=== PATIENT | female | born 1960 | race Caucasian/White ===

== ENCOUNTER 2016-06-26 16:40 | Outpatient (CLI) | payer OTHER | END 2016-06-26 16:41 | disposition home or self-care (01) | DX: J44.1 Chronic obstructive pulmonary disease with (acute) exacerbation (principal) ==

== ENCOUNTER 2016-07-06 06:14 | Day surgery (SDC) | payer OTHER ==
[2016-07-06] MEDS ORDERED: LACTATED RINGERS 1,000 ML IV ONE ×2 (07:25→08:34)
[2016-07-06] MEDS ORDERED: PROPOFOL 200 MG/20 ML VIAL IVP ONE (07:30)
[2016-07-06] MEDS ORDERED: ONDANSETRON 4 MG/2 ML VIAL IVP ONE (07:30)
[2016-07-06] MEDS ORDERED: MIDAZOLAM 2 MG/2 ML VIAL IVP ONE (07:30)
[2016-07-06] MEDS ORDERED: LIDOCAINE-MPF 2% 5 ML VIAL IM ONE (07:30)
[2016-07-06] MEDS ORDERED: KETOROLAC 30 MG/ML VIAL IVP ONE (07:30)
[2016-07-06] MEDS ORDERED: BUPIVACAINE 0.5%-EPI 1:200000 PF 30 ML VIAL SUBQ ONE ×2 (08:06)
[2016-07-06] MEDS ORDERED: LIDOCAINE 1% 50 ML MDV SUBQ ONE ×2 (08:06)
[2016-07-06] MEDS ORDERED: BACITRACIN ZINC OINT 15 GM TOP ONE (08:33)
== END 2016-07-06 06:15 | disposition home or self-care (01) ==
PROC: 0DBQ0ZZ Excision of Anus, Open Approach (ICD-10-PCS; 2016-07-06)
PROC: 06BY0ZC Excision of Hemorrhoidal Plexus, Open Approach (ICD-10-PCS; principal; 2016-07-06 07:30)
DX: K62.9 Disease of anus and rectum, unspecified (principal); K64.8 Other hemorrhoids; J43.9 Emphysema, unspecified; F17.210 Nicotine dependence, cigarettes, uncomplicated; E66.9 Obesity, unspecified; Z68.41 Body mass index [BMI] 40.0-44.9, adult
CPT/HCPCS: 46255; 46922; A9270; J7120

== ENCOUNTER 2016-07-13 13:46 | Outpatient (CLI) | payer OTHER | END 2016-07-13 13:47 | disposition home or self-care (01) | DX: E03.9 Hypothyroidism, unspecified (principal) ==

== ENCOUNTER 2016-08-19 13:43 | Outpatient (CLI) | payer OTHER | END 2016-08-19 13:44 | disposition home or self-care (01) | DX: E03.9 Hypothyroidism, unspecified (principal) ==

== ENCOUNTER 2018-06-21 11:19 | Outpatient (CLI) | payer OTHER ==
--- NOTE | 2018-06-22 10:13 | XRAY Report ---
Reason: UNSPECIFIED INJURY OF RIGHT SHOULDER UPPER ARM Procedure Date: 06/21/2018 Accession Number: [id number] / [id number] Procedure: XR - Shoulder 3 View RT CPT Code: FULL RESULT: EXAM: RIGHT SHOULDER RADIOGRAPHY EXAM DATE: 06/21/2018 12:07 PM. CLINICAL HISTORY: UNSPECIFIED INJURY OF RIGHT SHOULDER UPPER ARM. Fall, hitting right shoulder on the edge of countertop with hyperextension of arm. COMPARISON: None. TECHNIQUE: 3 views. FINDINGS: Bones: There is an old midshaft right clavicle fracture with hypertrophic nonunion. No acute fracture is identified. Joints: The glenohumeral and acromioclavicular joints are normal. Soft tissues: The visualized hemithorax is unremarkable. No soft tissue swelling. IMPRESSION: 1. No acute fracture or malalignment of the right shoulder. 2. 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 RADIA
== END 2018-06-21 11:20 | disposition home or self-care (01) ==
LOC: DI 11:19
PROVIDERS: ATTEND Registered Nurse
DX: S49.91XA Unspecified injury of right shoulder and upper arm, initial encounter (principal); S42.021K Displaced fracture of shaft of right clavicle, subsequent encounter for fracture with nonunion

== ENCOUNTER 2019-06-09 14:07 | Outpatient (CLI) | payer OTHER ==
--- NOTE | 2019-06-14 11:32 | Mammography Report ---
Reason: ROUTINE MAMMO Procedure Date: 06/09/2019 Accession Number: [id number] / [id number] Procedure: MGS - Screening Mammo Dig Bilat CPT Code: Final Report FULL RESULT: EXAM: Screening Mammo Dig Bilat DATE: 06/09/2019 2:35 PM CLINICAL HISTORY: The patient is an asymptomatic 58-year-old female. No reported personal nor family history of breast cancer. Prior benign left excisional biopsy. TECHNIQUE: (B) - Bilateral CC and MLO views were obtained. COMPARISON: 11/23/2013 and 01/12/2011 PARENCHYMAL PATTERN: (A) - The breasts demonstrate scattered fibroglandular densities bilaterally. FINDINGS: RIGHT BREAST: There are no suspicious masses, calcifications, or areas of distortion. LEFT BREAST: There may be developing asymmetry in the lateral middle position; reference CC view only. Recommend targeted diagnostic evaluation. The remainder the parenchymal pattern is stable. IMPRESSION: RIGHT BREAST: Negative examination. BI-RADS category 1. LEFT BREAST: Incomplete Examination -BI-RADS category 0. RECOMMENDATION RIGHT BREAST: (ANNUAL) - Recommend routine annual screening mammography. LEFT BREAST: Recommend targeted diagnostic evaluation, as described. BI-RADS CATEGORY: (0) - Incomplete Examination - need additional evaluation. STANDARD QUALIFYING STATEMENTS: 1. This examination was reviewed with the aid of Computer-Aided Detection (CAD). 2. A negative or benign imaging report should not preclude biopsy if clinically suspicious findings are present. 3. Dense breasts may obscure an underlying neoplasm. BI-RADS 0 -- incomplete assessment
== END 2019-06-09 14:08 | disposition home or self-care (01) ==
LOC: DI.S 14:07
PROVIDERS: ATTEND Nurse Practitioner Family
DX: Z12.31 Encounter for screening mammogram for malignant neoplasm of breast (principal); R92.8 Other abnormal and inconclusive findings on diagnostic imaging of breast
CPT/HCPCS: 77067

== ENCOUNTER 2019-06-09 14:07 | Outpatient (CLI) | payer OTHER ==
--- NOTE | 2019-06-10 21:51 | XRAY Report ---
Reason: Low Back Pain Procedure Date: 06/09/2019 Accession Number: [id number] / [id number] Procedure: XRS - Lumbar Spine 2 View CPT Code: Final Report FULL RESULT: EXAM: LUMBOSACRAL SPINE RADIOGRAPHY EXAM DATE: 06/09/2019 03:11 PM. CLINICAL HISTORY: Low Back Pain. COMPARISONS: LUMBAR SPINE W/O 03/09/2015 10:45 AM. TECHNIQUE: 3 views. FINDINGS: Alignment: Normal. No spondylolisthesis or scoliosis. Bones: Five pin-dkk-orlicpm lumbar vertebral bodies are present. No fractures or bone lesions. Degenerative changes: Moderate L4-L5 and moderate to severe L5-S1 disk height loss with mild osteophytosis. Lesser disk level degenerative changes elsewhere in the lumbar spine. No other significant degenerative changes seen. Soft Tissues: Normal. The visualized bowel gas pattern is normal. IMPRESSION: Moderate L4-L5 and moderate to severe L5-S1 disk level degenerative changes RADIA
== END 2019-06-09 14:08 | disposition home or self-care (01) ==
LOC: DI.S 14:07
PROVIDERS: ATTEND Registered Nurse
DX: M51.36 Other intervertebral disc degeneration, lumbar region (principal); M51.37 Other intervertebral disc degeneration, lumbosacral region
CPT/HCPCS: 72100

== ENCOUNTER 2019-07-25 10:01 | Outpatient (CLI) | payer OTHER ==
--- NOTE | 2019-07-25 14:52 | Mammography Report ---
Reason: ABN MAMMO-LT SPEC VIEWS Procedure Date: 07/25/2019 Accession Number: [id number] / [id number] Procedure: FINA - Diag Special Views Dig LT CPT Code: Final Report FULL RESULT: EXAM: Diag Special Views Dig LT DATE: 07/25/2019 10:27 AM CLINICAL HISTORY: Diagnostic examination. History of early menses. The patient is recalled from screening for question of a developing asymmetry in the left breast. TECHNIQUE: (L) - Left CC, spot CC, ML images are obtained. COMPARISON: 06/09/2019 through 10/26/2007. PARENCHYMAL PATTERN: (A) - The breast(s) demonstrate(s) scattered fibroglandular densities. FINDINGS: The previously identified one view asymmetry is not redemonstrated on today's examination. There are no suspicious masses, calcifications, or areas of distortion. IMPRESSION: Negative examination. BI-RADS category 1. RECOMMENDATION: (ANNUAL) - Recommend routine annual screening mammography. BI-RADS CATEGORY: (1) - Negative. STANDARD QUALIFYING STATEMENTS: 1. This examination was not reviewed with the aid of Computer-Aided Detection (CAD). 2. A negative or benign imaging report should not preclude biopsy if clinically suspicious findings are present. 3. Dense breasts may obscure an underlying neoplasm. 4. This examination was reviewed with the aid of 3D breast imaging (tomosynthesis).
== END 2019-07-25 10:02 | disposition home or self-care (01) ==
LOC: DI 10:01
PROVIDERS: ATTEND Nurse Practitioner Family
DX: R92.8 Other abnormal and inconclusive findings on diagnostic imaging of breast (principal)

== ENCOUNTER 2020-09-05 17:11 | Outpatient (CLI) | payer OTHER ==
--- NOTE | 2020-09-06 08:36 | XRAY Report ---
PROCEDURE: Shoulder 2 View RT INDICATIONS: RIGHT SHOULDER JOINT PAIN TECHNIQUE: 3 views of the shoulder were acquired. COMPARISON: None. FINDINGS: Bones: No fractures or dislocations. Degenerative changes of the glenohumeral joint and acromioclav icular joint are mild. There is a remote fracture of the clavicle. No suspicious bony lesions. Visua lized ribs appear intact. Soft tissues: No suspicious soft tissue calcifications. IMPRESSION: 1. No acute abnormality of the right shoulder. 2. Mild degenerative changes of the right glenohumeral joint and acromioclavicular joint. 3. Remote fracture of the right clavicle. Reviewed by: Frederick Lane on 09/06/2020 8:35 AM PDT Approved by: Frederick Lane on 09/06/2020 8:35 AM PDT Station ID: [id number]
== END 2020-09-05 17:12 | disposition home or self-care (01) ==
LOC: DI.S 17:11
PROVIDERS: ATTEND Physician Assistant
DX: M25.511 Pain in right shoulder (principal); M19.011 Primary osteoarthritis, right shoulder

== ENCOUNTER 2021-03-06 16:30 | Emergency (ER) | payer OTHER ==
[2021-03-06 17:12] LABS: BILIRUBIN,URINE NEGATIVE (NEGATIVE); GLUCOSE, URINE (UA) NEGATIVE (NEGATIVE); KETONES,URINE (UA) NEGATIVE (NEGATIVE); LEUKOCYTE ESTERASE, URINE SMALL (NEGATIVE); NITRITE,URINE POSITIVE (NEGATIVE); OCCULT BLOOD,URINE LARGE (NEGATIVE); PROTEIN,URINE 100 mg/dL (NEGATIVE); UROBILINOGEN,URINE 0.2 (NORMAL) E.U./dL (NORMAL)
[2021-03-06 17:25] LABS: CLARITY,URINE CLOUDY (CLEAR)
[2021-03-06 17:32] LABS: BACTERIA,URINE Few /HPF (None Seen); RBC,URINE TNTC /HPF (0-5); SQUAMOUS EPITHELIAL CELL,UR FEW Squamous (<= Few); WBC,URINE >25 /HPF (0-5)
[2021-03-06 18:22] LABS: BASOPHILS # (AUTO) 0.1 10^3/uL (0.0-0.1); BASOPHILS % (AUTO) 0.6 %; EOSINOPHILS # (AUTO) 0.1 10^3/uL (0.0-0.7); HCT - HEMATOCRIT 44.1 % (37.0-47.0); HGB - HEMOGLOBIN 14.2 g/dL (12.0-16.0); LYMPHOCYTES # (AUTO) 1.7 10^3/uL (1.5-3.5); LYMPHOCYTES % (AUTO) 15.5 %; MEAN CORPUSCULAR HEMOGLOBIN 31.3 pg (27.0-31.0); MEAN CORPUSCULAR HGB CONC 32.2 g/dL (32.0-36.0); MEAN CORPUSCULAR VOLUME 97.4 fL (81.0-99.0); MEAN PLATELET VOLUME 11.6 fL (7.9-10.8); MONOCYTES # (AUTO) 0.9 10^3/uL (0.0-1.0); MONOCYTES % (AUTO) 7.6 %; NEUTROPHILS # (AUTO) 8.4 10^3/uL (1.5-6.6); NEUTROPHILS % (AUTO) 74.9 %; PLT - PLATELET COUNT 191 10^3/uL (130-450); RED BLOOD COUNT 4.53 10^6/uL (4.20-5.40); RED CELL DISTRIBUTION WIDTH 13.4 % (12.0-15.0); WHITE BLOOD COUNT 11.2 x10^3/uL (4.8-10.8)
[2021-03-06 18:36] LABS: ALBUMIN 4.5 g/dL (3.2-5.5); ALBUMIN/GLOBULIN RATIO 1.3 (1.0-2.2); BILIRUBIN,TOTAL 1.1 mg/dL (0.2-1.0); CALCIUM 10.1 mg/dL (8.5-10.3); CREATININE 0.8 mg/dL (0.4-1.0); TOTAL PROTEIN 7.9 g/dL (6.7-8.2)
[2021-03-06 19:32] LABS: FREE T3 2.75 pg/mL (2.5-3.9)
[2021-03-06 19:34] LABS: FREE T4 (FREE THYROXINE) 0.74 ng/dL (0.58-1.64)
[2021-03-06] MEDS ORDERED: LIDOCAINE 1% 2 ML VIAL MC ONE (19:39)
[2021-03-06] MEDS ORDERED: cefTRIAXone 1 GM VIAL IM STA (19:39)
[2021-03-06] MEDS ORDERED: PHENAZOPYRIDINE 100 MG TABLET PO STA (19:40)
--- NOTE | 2021-03-06 19:52 | ED Physician Documentation ---
History of Present Illness - Stated complaint Stated Complaint: FREQ URINATION/LOW BACK PX/R SIDE PX - Chief complaint Chief Complaint: Abd Pain - Additonal information Additional information: 60-year-old female presents the emergency department for evaluation of frequent urination as well as bladder pain. Symptoms began about 2 weeks ago but have gotten progressively worse over the last 24 to 48 hours. She reports that she is now urinating about every 20 minutes. She feels like an elephant is sitting on her bladder though she does not have faheem dysuria. She endorses chills but no objective fever. No nausea or vomiting. Past surgical history most significant for total abdominal hysterectomy. Denies any previous history of urinary tract infections or nephrolithiasis. Review of Systems Constitutional: reports: Chills. denies: Fever Eyes: reports: Reviewed and negative Nose: reports: Reviewed and negative Throat: reports: Reviewed and negative Cardiac: reports: Reviewed and negative Respiratory: reports: Reviewed and negative GI: reports: Abdominal Pain. denies: Nausea, Vomiting : reports: Frequency. 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, Oophrectomy - Present Medications Home Medications: Ambulatory Orders Medication Instructions Recorded Confirmed Levothyroxine [Synthroid] 25 mcg PO QDAC 02/19/16 07/03/16 Albuterol Sulf [Ventolin Hfa 1 - 2 puffs INH Q4HR PRN 07/06/16 07/06/16 Inhaler] Trazodone HCl 50 mg PO BID 07/06/16 07/06/16 Cefpodoxime Proxetil [Vantin] 100 mg PO Q12H #14 tablet 03/06/21 Phenazopyridine HCl [Pyridium] 200 mg PO TID PRN #6 tablet 03/06/21 - Allergies Allergies/Adverse Reactions: Allergies Allergy/AdvReac Type Severity Reaction Status Date / Time latex Allergy Rash Verified 02/19/16 07:38 - Social History Does the pt smoke?: Yes Smoking Status: Current every day smoker PD ED PE NORMAL - General General: Alert and oriented X 3, No acute distress - Neck Neck: Supple, no meningeal sign - Cardiac Cardiac: RRR, No murmur - Respiratory Respiratory: Clear bilaterally - Abdomen Abdomen: Normal bowel sounds, Soft, Non distended. No: Non tender (Tenderness to palpation of the bladder. No flank or CVA tenderness elicited.) - Back Back: No CVA TTP, No spinal TTP - Derm Derm: Warm and dry - Extremities Extremities: No deformity - Neuro Neuro: Alert and oriented X 3 Eye Opening: Spontaneous Motor: Obeys Commands Verbal: Oriented GCS Score: 15 - Psych Psych: Normal mood, Normal affect Results - Vitals Vitals: Vital Signs - 24 hr 03/06/21 03/06/21 16:51 19:42 Temperature 36.3 C L Heart Rate 94 81 Respiratory 18 19 Rate Blood Pressure 137/112 H 157/107 H O2 Saturation 97 95 Oxygen O2 Source Room air - Labs Labs: Laboratory Tests 03/06/21 03/06/21 03/06/21 17:06 18:19 18:19 WBC 11.2 H RBC 4.53 Hgb 14.2 Hct 44.1 MCV 97.4 MCH 31.3 H MCHC 32.2 RDW 13.4 Plt Count 191 MPV 11.6 H Neut # (Auto) 8.4 H Lymph # (Auto) 1.7 Chase # (Auto) 0.9 Eos # (Auto) 0.1 Baso # (Auto) 0.1 Absolute Nucleated RBC 0.00 Nucleated RBC % 0.0 Sodium 139 Potassium 4.0 Chloride 99 L Carbon Dioxide 31 Anion Gap 9.0 BUN 14 Creatinine 0.8 Estimated GFR (MDRD) 73 L Glucose 99 Calcium 10.1 Total Bilirubin 1.1 H AST 19 ALT 25 Alkaline Phosphatase 72 Total Protein 7.9 Albumin 4.5 Globulin 3.4 Albumin/Globulin Ratio 1.3 Lipase 26 TSH Free T4 Free T3 pg/mL Urine Color YELLOW Urine Clarity CLOUDY Urine pH 6.0 Ur Specific [place] 1.025 Urine Protein 100 H Urine Glucose (UA) NEGATIVE Urine Ketones NEGATIVE Urine Occult Blood LARGE H Urine Nitrite POSITIVE H Urine Bilirubin NEGATIVE Urine Urobilinogen 0.2 (NORMAL) Ur Leukocyte Esterase SMALL H Urine RBC TNTC H Urine WBC >25 H Ur Squamous Epith Cells FEW Squamous Urine Bacteria Few Ur Microscopic Review INDICATED Urine Culture Comments INDICATED 03/06/21 03/06/21 18:19 18:19 WBC RBC Hgb Hct MCV MCH MCHC RDW Plt Count MPV Neut # (Auto) Lymph # (Auto) Chase # (Auto) Eos # (Auto) Baso # (Auto) Absolute Nucleated RBC Nucleated RBC % Sodium Potassium Chloride Carbon Dioxide Anion Gap BUN Creatinine Estimated GFR (MDRD) Glucose Calcium Total Bilirubin AST ALT Alkaline Phosphatase Total Protein Albumin Globulin Albumin/Globulin Ratio Lipase TSH 26.91 H Free T4 0.74 Free T3 pg/mL 2.75 Urine Color Urine Clarity Urine pH Ur Specific [place] Urine Protein Urine Glucose (UA) Urine Ketones Urine Occult Blood Urine Nitrite Urine Bilirubin Urine Urobilinogen Ur Leukocyte Esterase Urine RBC Urine WBC Ur Squamous Epith Cells Urine Bacteria Ur Microscopic Review Urine Culture Comments PD MEDICAL DECISION MAKING - ED course Complexity details: considered differential, d/w patient ED course: This is a well-appearing 6-year-old female that presents the emergency department for evaluation of urinary urgency and frequency that began about 2 weeks ago but is gotten progressively worse over the last 24 hours. Her urine is frankly consistent with infection. She has had no fevers but does endorse chills. On exam she has suprapubic tenderness but no flank or CVA tenderness elicited. No tachycardia or hypotension. Screening labs do show a very small leukocyte elevation of under 12,000. Patient will be given ceftriaxone here in the emergency department as well as a prescription for Cefpodoxime. Initial TSH was markedly elevated at 26 but corrected T3-T4 are within normal range. Continue levothyroxine at 100 mics daily. Departure - Departure Disposition: 01 Home, Self Care Clinical Impression: Cystitis Condition: Stable Record reviewed to determine appropriate education?: Yes Instructions: ED UTI Cystitis Female Follow-Up: Serene Balderas, INSPECTOR AND CLERK [Primary Care Provider] - Prescriptions: Phenazopyridine HCl [Pyridium] 200 mg PO TID PRN #6 tablet PRN Reason: dysuria Cefpodoxime Proxetil [Vantin] 100 mg PO Q12H #14 tablet Comments: Christine you do have a urinary tract infection. You were given an injection of An antibiotic here in the emergency department but I would like you to fill the prescription for the Cefpodoxime tomorrow at the [facility] and take twice daily for the next 7 days. I have also prescribed a medication called Pyridium which will turn your urine bright orange but should help reduce the pain and frequency with which you need to urinate. If at any point you find that your symptoms are not improving despite the antibiotics, you have uncontrolled vomiting, high fevers pain high in your back then please return immediately to the ER for a second evaluation.
[2021-03-06 20:09] VITALS: BP 140/90
== END 2021-03-06 20:09 | disposition home or self-care (01) ==
LOC: ED 16:30
DX: N30.90 Cystitis, unspecified without hematuria (principal); E03.9 Hypothyroidism, unspecified; F17.200 Nicotine dependence, unspecified, uncomplicated
CPT/HCPCS: 36415; 80053; 81001; 83690; 84439; 84443; 84481; 85025; 87086; 87181; 96372; 99283; A9270; 81003

== ENCOUNTER 2022-03-04 12:21 | Outpatient (CLI) | payer OTHER ==
--- NOTE | 2022-03-04 16:38 | XRAY Report ---
PROCEDURE: Chest 2 View X-Ray INDICATIONS: DYSPNEA ON EXERTION TECHNIQUE: 2 view(s) of the chest. COMPARISON: Chest x-ray 06/26/2016 FINDINGS: Surgical changes and devices: None. Lungs and pleura: No pleural effusions or pneumothorax. Lungs are clear. Mediastinum: Mediastinal contours are normal. Heart size is normal. Bones and chest wall: No suspicious bony abnormalities. Soft tissues appear unremarkable. IMPRESSION: No acute pulmonary process. Reviewed by: Brunilda Kaplan MD on 03/04/2022 4:36 PM PDT Approved by: Brunilda Kaplan MD on 03/04/2022 4:36 PM PDT Station ID: [id number]
== END 2022-03-04 12:22 | disposition home or self-care (01) ==
LOC: DI.S 12:21
PROVIDERS: ATTEND Registered Nurse
DX: R06.09 Other forms of dyspnea (principal)

== ENCOUNTER 2022-04-07 09:25 | Outpatient (CLI) | payer OTHER ==
--- NOTE | 2022-04-07 10:30 | CT Report ---
PROCEDURE: CHEST WO INDICATIONS: DYSPNEA TECHNIQUE: Noncontrast 1mm axial images were acquired from the pulmonary apices to the posterior costophrenic an gles. Axial 5 mm soft tissue kernel reconstructions were performed as well as 8 mm axial MIP and cor onal and sagittal 5 mm reformations. For radiation dose reduction, the following was used: automate d exposure control, adjustment of mA and/or kV according to patient size. COMPARISON: None FINDINGS: Image quality: Excellent. Lungs and pleura: No acute air space opacities. 3 mm pulmonary nodule, right upper lobe, image 149/4 . No pleural effusions or pneumothorax. Central and peripheral airways are patent and normal in nimesh marilee. Mediastinum: Heart size is normal. No pericardial effusion. No mediastinal adenopathy by size crit eria. Thoracic aorta and central pulmonary arteries are normal in size. Esophagus is normal in nimesh marilee. No hiatal hernia. Bones and chest wall: No suspicious bony lesions. No vertebral body compression fractures. No axil amanda or supraclavicular adenopathy by size criteria. The thyroid is normal in size and there are no incidental findings. Abdomen: Visualized upper abdominal solid organs and bowel loops appear normal in the absence of con trast. IMPRESSION: 1. No evidence acute pulmonary process. 2. 3 mm pulmonary nodule, right upper lobe. Comment: As per the Fleischner Society criteria,If the patient is at low risk for lung cancer, no fur ther follow-up is required. If the patient has risk factors for lung cancer, repeat evaluation with a low-dose noncontrast chest CT may be obtained in 12 months time. If the nodule is stable at that poi nt, no further follow-up is required. CLINICAL RECOMMENDATION STATEMENTS: In patients <35 years with an ITN detected on CT, MRI, or extrathyroidal ultrasound, the Committee re commends further evaluation with dedicated thyroid ultrasound if the nodule is "e1 cm and has no susp icious imaging features, and if the patient has normal life expectancy. In patients "e35 years with an ITN detected on CT, MRI, or extrathyroidal ultrasound, the Committee r ecommends further evaluation with dedicated thyroid ultrasound if the nodule is "e1.5 cm and has no s uspicious imaging features, and if the patient has normal life expectancy. (ACR, 2014) Reviewed by: Diogenes Haines MD on 04/07/2022 10:28 AM PDT Approved by: Diogenes Haines MD on 04/07/2022 10:28 AM PDT Station ID: [id number]
== END 2022-04-07 09:26 | disposition home or self-care (01) ==
LOC: DI 09:25
PROVIDERS: ATTEND Registered Nurse
DX: R91.1 Solitary pulmonary nodule (principal)

== ENCOUNTER 2023-08-12 13:11 | Outpatient (CLI) | payer OTHER ==
[2023-08-12] MEDS: ALBUTEROL 1 PUFF INH STA (15:33)
== END 2023-08-12 13:12 | disposition home or self-care (01) ==
LOC: RT 13:11
PROVIDERS: ATTEND Registered Nurse
DX: R06.09 Other forms of dyspnea (principal)
CPT/HCPCS: 94060; 94727; 94729

== ENCOUNTER 2023-12-26 09:11 | Emergency (ER) | payer OTHER ==
[2023-12-26 09:25] VITALS: BP 131/93; O2SAT 99
--- NOTE | 2023-12-26 09:40 | ED Physician Documentation ---
History of Present Illness - Stated complaint Stated Complaint: PX UP RT LEG - Chief complaint Chief Complaint: Ext Problem - History obtained from History obtained from: Patient - Additonal information Additional information: She has a history of sciatica and presents today with a flare that is been going on for about 2 weeks. There was no trauma. It is in her low back but really in the lateral right thigh. Worse with motion and walking. She was seen here in 2016 for this and received Toradol and dexamethasone which was very helpful for her and she would like this repeated specifically. 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, Oophrectomy - Present Medications Home Medications: Ambulatory Orders Medication Instructions Recorded Confirmed Levothyroxine [Synthroid] 25 mcg PO QDAC 02/19/16 07/03/16 Albuterol Sulf [Ventolin Hfa 1 - 2 puffs INH Q4HR PRN 07/06/16 07/06/16 Inhaler] Trazodone HCl 50 mg PO BID 07/06/16 07/06/16 Cefpodoxime Proxetil [Vantin] 100 mg PO Q12H #14 tablet 03/06/21 Phenazopyridine HCl [Pyridium] 200 mg PO TID PRN #6 tablet 03/06/21 HYDROcod/ACETAM 5/325 [[place] 5/325] 1 - 2 tab PO Q6H PRN #15 tablet 12/26/23 predniSONE [Deltasone] 20 mg PO [id number] #21 tab 12/26/23 - Allergies Allergies/Adverse Reactions: Allergies Allergy/AdvReac Type Severity Reaction Status Date / Time latex Allergy Rash Verified 12/26/23 09:20 - Social History Does the pt smoke?: Yes Smoking Status: Current every day smoker Does the pt drink ETOH?: No Does the pt have substance abuse?: No - Immunizations Immunizations are current?: Yes - POLST Patient has POLST: No PD ED PE NORMAL - Vitals Vital signs reviewed: Yes - General General: Alert and oriented X 3, No acute distress - Back Back: No spinal TTP, Other (Mildly decreased sensation in the right thigh compared to the left. Otherwise the patient has equal and normal Achilles and patellar reflexes bilaterally. Normal sensation in all areas of the legs. Patient denies saddle anesthesia. Normal strength in flexion-extension at the ankles, knees, and f) - Derm Derm: Normal color - Neuro Neuro: Alert and oriented X 3 Results - Vitals Vitals: Vital Signs - 24 hr 12/26/23 09:20 Temperature 36.5 C Heart Rate 66 Respiratory 16 Rate Blood Pressure 131/93 H O2 Saturation 99 Oxygen O2 Source Room air PD Medical Decision Making - ED course ED course: This patient has seemingly uncomplicated musculoskeletal back pain. The patient has no "red flags." Specifically denies IV drug use, fevers, incontinence, saddle anesthesia. Spinal epidural abscess was considered, given that the patient has no fever, is not diabetic, has no spinal tenderness, does not use IV drugs, and has no bilateral neurologic symptoms, the diagnosis of spinal epidural abscess is considered exceedingly unlikely. Departure - Departure Disposition: 01 Home, Self Care Clinical Impression: Sciatica Qualifiers: Laterality: right Qualified Code(s): M54.31 - Sciatica, right side Condition: Good Record reviewed to determine appropriate education?: Yes Instructions: ED Sciatica Prescriptions: predniSONE [Deltasone] 20 mg PO [id number] #21 tab HYDROcod/ACETAM 5/325 [[place] 5/325] 1 - 2 tab PO Q6H PRN #15 tablet PRN Reason: Pain Comments: I sent your prescriptions electronically to the [facility] in [place]. You were seen today for sciatica, you received injections of Toradol/ketorolac and dexamethasone an anti-inflammatory and a steroid respectively. Call your doctor to arrange a follow-up appointment, make the next available appointment. In the interim, return anytime if worse or if new symptoms develop. I am prescribing a short course of narcotic pain medication for you. These are potentially dangerous and addictive medications that should be used carefully. These medications may constipate you. Take an zsgm-wts-jequxtp stool softener (docusate) twice daily with plenty of water while taking these medications. If you go 24 hours without a bowel movement, take vnmv-bcr-xlqiszi miralax, per package instructions. Do not drink or drive while taking these medications. If you received narcotic or sedating medications while in the emergency department, do not drive for 24 hours. Store this medication in a safe, secure place and out of reach of children. It is a violation of federal law to give or sell this medication to another person or to use in a manner other than prescribed. The ED will not refill narcotic prescriptions, including prescriptions lost or stolen. To dispose of unwanted medications: 1. [facility] provides a drop box for medication in pill form only (no liquids) 8:00 am to 4:30 p.m. Wednesday-Wednesday in the lobby of the [facility], [address] [place] [address]. Empty pills into ziplock bag before disposal. Call [phone] for information. 2.[employer] is a free service available to all [facility] residents. Go to [email or web address] Note that many narcotic pain relievers also contain Tylenol/acetaminophen. Please ensure that your total dose of acetaminophen from all sources does not exceed 3 g (3000 mg) per day.
[2023-12-26] MEDS: DEXAMETHASONE 10 MG/ML VIAL IM STA (10:18)
[2023-12-26] MEDS: KETOROLAC 60 MG/2 ML VIAL IM STA (10:18)
== END 2023-12-26 10:20 | disposition home or self-care (01) ==
LOC: ED 09:11
DX: M54.31 Sciatica, right side (principal); E03.9 Hypothyroidism, unspecified; Z79.899 Other long term (current) drug therapy; F17.200 Nicotine dependence, unspecified, uncomplicated
CPT/HCPCS: 96372; 99283

== ENCOUNTER 2024-01-13 11:22 | Emergency (ER) | payer OTHER ==
--- NOTE | 2024-01-13 12:02 | ED Physician Documentation ---
History of Present Illness - Stated complaint Stated Complaint: LOWER BACK/RT LEG PX - Chief complaint Chief Complaint: Back Pain - History obtained from History obtained from: Patient - History of Present Illness Timing: Prior to arrival - Additonal information Additional information: Patient is a 63-year-old female presenting to the emergency department with s ciatic right leg pain. Patient has past medical history of sciatica to her right leg which she feels symptoms have been flaring up recently. She denies any recent trauma. Patient was seen here on 12/25 for similar symptoms and received steroids and [place] for pain control at home which she felt did not relieve her symptoms. Patient notes she has received Decadron and Toradol in the past with relief but she feels her pain was not relieved from most recent visit as it was not done on her right leg. She is not taking anything for her pain at home denies any fevers denies any history of IV drug use.She denies any saddle anesthesia. Pain seems to worsen from laying to standing position. She has some mild abnormal sensation to the lateral portion of her right leg that she describes as stabbing electric pain but denies any loss of sensation or weakness to her right leg PD PAST MEDICAL HISTORY - Past Medical History Past Medical History: Yes Cardiovascular: None Respiratory: None Neuro: None Endocrine/Autoimmune: HyPOthyroidism GI: None CLOSING MANAGER: None : None HEENT: None Psych: None Musculoskeletal: None Derm: None - Past Surgical History Past Surgical History: Yes /CLOSING MANAGER: section, Oophrectomy - Present Medications Home Medications: Ambulatory Orders Medication Instructions Recorded Confirmed Levothyroxine [Synthroid] 25 mcg PO QDAC 02/19/16 07/03/16 Trazodone HCl 50 mg PO BID 07/06/16 07/06/16 Cyclobenzaprine [Flexeril] 10 mg PO TID PRN #20 tablet 01/13/24 Gabapentin [Gabapentin ER] 300 mg PO HS 01/13/24 01/13/24 Naproxen 250 mg PO BID PRN #15 tablet 01/13/24 predniSONE [Deltasone] 20 mg PO [id number] #21 tab 01/13/24 - Allergies Allergies/Adverse Reactions: Allergies Allergy/AdvReac Type Severity Reaction Status Date / Time latex Allergy Rash Verified 01/13/24 11:36 - Social History Does the pt smoke?: Yes Smoking Status: Current every day smoker Does the pt drink ETOH?: No Does the pt have substance abuse?: No - Immunizations Immunizations are current?: Yes - POLST Patient has POLST: No PD ED PE NORMAL - Vitals Vital signs reviewed: Yes - General General: Alert and oriented X 3 - HEENT HEENT: Atraumatic - Neck Neck: Supple, no meningeal sign - Cardiac Cardiac: RRR, No murmur, No gallop - Respiratory Respiratory: No respiratory distress, Clear bilaterally - Abdomen Abdomen: Non tender, Other (No CVA tenderness) - Back Back: No CVA TTP - Extremities Extremities: No deformity - Free text exam Free text exam: Right leg shows equal strength with negative straight leg raise compared to left leg. Sensation equal and intact bilaterally. No significant swelling or discoloration appreciated to right leg. Pulses intact DP PT 2+ in bilateral legs. Negative Homans' sign. Negative Vaz's test. Compartments are soft Results - Vitals Vitals: Vital Signs - 24 hr 01/13/24 11:31 Temperature 36.5 C Heart Rate 74 Respiratory 16 Rate Blood Pressure 132/80 H O2 Saturation 95 Oxygen O2 Source Room air PD Medical Decision Making - ED course Complexity details: reviewed old records, reviewed results ED course: Patient is a 63-year-old female presenting with right leg pain. She was seen here few weeks ago for similar symptoms she feels is reactivation of her sciatica. She has had this problem for multiple years has not followed with orthopedics. She notes pain worsens from laying to standing. Vital stable on arrival. Physical exam shows no discoloration to bilateral legs no abnormal sensation strength intact 5 out of 5 bilaterally. Pulses intact bilaterally. Discussed with patient we will give steroid shot in right leg to see if this helps her symptoms instructed patient this would not be a nerve block she would need to see an orthopedic physician for this as it requires image guidance. Additionally we will give Toradol here in the emergency department for anti- inflammatory effects. Low suspicion for any fractures patient has not had any trauma denies any lumbar spinous process tenderness. She has no fevers lower mendez spicion for any occult abscess or cauda equina as she has no numbness decreased sensation or weakness in legs. Patient given phone number for orthopedic surgeon she can follow-up with. Departure - Departure Disposition: 01 Home, Self Care Clinical Impression: Back pain, Injury of sciatic nerve at hip and thigh level, right leg, initial encounter Condition: Good Instructions: ED Sciatica Follow-Up: Serene Balderas ARNP [Primary Care Provider] - Prescriptions: predniSONE [Deltasone] 20 mg PO [id number] #21 tab Cyclobenzaprine [Flexeril] 10 mg PO TID PRN #20 tablet PRN Reason: Spasms Naproxen 250 mg PO BID PRN #15 tablet PRN Reason: Pain Comments: You are seen here in the emergency department for your right leg pain your symptoms most likely secondary to your sciatica I have given you a short course of steroids to see if this will help your leg pain as well as an anti- inflammatory. I have also given you a muscle relaxer to help with your muscle tightness. You should be careful taking this medication as it can make you more fatigued and more risk for falling. Please take it only at night do not take it when you are driving or working. Return to the ED with any numbness fevers severe worsening back pain discoloration to your extremity or any other new or worsening symptoms.
[2024-01-13] MEDS: KETOROLAC 15 MG/ML VIAL IM STA (12:17)
[2024-01-13] MEDS: DEXAMETHASONE 10 MG/ML VIAL IM STA (12:17)
[2024-01-13 12:51] VITALS: BP 139/87; O2SAT 94
== END 2024-01-13 12:47 | disposition home or self-care (01) ==
LOC: ED 11:22
DX: M54.41 Lumbago with sciatica, right side (principal); E03.9 Hypothyroidism, unspecified; F17.200 Nicotine dependence, unspecified, uncomplicated; Z79.899 Other long term (current) drug therapy
CPT/HCPCS: 96372; 99283